=== PATIENT | female | born 1960 | race Hispanic/Latino ===

== ENCOUNTER 2017-05-27 14:50 | Emergency (ER) | payer BC, MEDICARE ==
[~2017-05-27 14:50] MED LIST: ALPR1TAB7 PO; CLON0.5T4 PO; FLUO40CA49 PO; LEVO500T2 PO; METO-408 PO; METR500T4 PO; PHEN100C9 PO; PRAV20TA4 PO; TRAZ-147 PO; ZONI100C6 PO
[2017-05-27 16:11] LABS: BILIRUBIN,URINE Small (NEGATIVE); COLOR,URINE Dark Yellow (YELLOW); GLUCOSE, URINE (UA) Negative (NEGATIVE); KETONES,URINE Negative (NEGATIVE); LEUKOCYTE ESTERASE ,URINE Trace (NEGATIVE); NITRATE,URINE Positive (NEGATIVE); OCCULT BLOOD,URINE Negative (NEGATIVE); PROTEIN,URINE Negative (NEGATIVE)
[2017-05-27 16:23] LABS: APPEARANCE,URINE SLIGHTLY CLOUDY (CLEAR)
[2017-05-27] MEDS ORDERED: ONDANSETRON ODT 4 MG TAB ONE (17:23)
[2017-05-27] MEDS ORDERED: KETOROLAC TROMETHAMINE 60 MG/2 ML VIAL ONE (17:23)
[2017-05-27 17:34] LABS: BACTERIA,URINE Few /HPF (None Seen); RBC,URINE 0-1 /HPF (0-1)
[2017-05-27 17:35] LABS: CALCIUM OXALATE CRYSTALS,UR Few /LPF (None Seen); MUCUS,URINE Moderate LPF (None Seen); SQUAMOUS EPITHELIAL CELL,UR Few /LPF (0-2)
== END 2017-05-27 18:12 | disposition home or self-care (01) ==
LOC: EDH 14:50
DX: N30.00 Acute cystitis without hematuria (principal); L02.31 Cutaneous abscess of buttock; Z90.710 Acquired absence of both cervix and uterus; Z98.890 Other specified postprocedural states; Z88.0 Allergy status to penicillin
CPT/HCPCS: 81001; 87804 ×2; 96372; 99284; J1885

== ENCOUNTER 2017-05-30 00:30 | Inpatient (IN) | payer BC, MEDICARE ==
[~2017-05-30] VITALS: Ht 170.2 cm; Wt 82.1 kg
[2017-05-30] VITALS (20 sets, daily range): BP systolic 99–143; BP diastolic 53–85
[2017-05-30 01:55] LABS: BASOPHILS % (AUTO) 0.5 % (0.0-5.0); EOSINOPHILS % (AUTO) 2.7 % (0.0-8.0); HEMATOCRIT 36.5 % (36-48); LYMPHOCYTES % (AUTO) 18.3 % (21.0-51.0); MEAN CORPUSCULAR HEMOGLOBIN 29.7 pg (27.0-33.0); MEAN CORPUSCULAR HGB CONC 34.1 g/dL (32.0-36.0); MEAN CORPUSCULAR VOLUME 87.2 fL (79-99); MONOCYTES % (AUTO) 7.5 % (3.0-13.0); PLATELET COUNT (AUTO) 265 K/uL (130-400); RED BLOOD CELL COUNT(AUTO) 4.19 MIL/uL (4.00-5.50); RED CELL DISTRIBUTION WIDTH 13.5 % (11.0-15.5); WHITE BLOOD COUNT (AUTO) 14.1 K/uL (4.8-10.8)
[2017-05-30] MEDS ORDERED: LORAZEPAM 2 MG/ML 1 ML VIAL ONE (02:02)
[2017-05-30 02:05] LABS: CREATININE 0.9 mg/dL (0.5-1.5)
[2017-05-30 02:07] LABS: PHENYTOIN (DILANTIN) 4.9 mcg/mL (10.0-20.0)
[2017-05-30] MEDS ORDERED: VANCOMYCIN 1GM+NS 250ML 250 ML IV ONE (03:16)
[2017-05-30] MEDS ORDERED: FOSPHENYTOIN SODIUM 500 MG/10ML VIAL IJ ONE (03:17)
[2017-05-30] MEDS ORDERED: KETOROLAC TROMETHAMINE 30MG/ML ONE ×2 (03:20→20:31)
[2017-05-30] MEDS ORDERED: LORAZEPAM 2 MG/ML 1 ML VIAL IVP PRN (05:45)
[2017-05-30 06:17] LABS: INR 0.99 (0.85-1.15); PROTHROMBIN TIME 10.4 SEC (9.6-11.6)
[2017-05-30] MEDS ORDERED: MEROPENEM 500 MG VIAL IVP SCH (06:26)
[2017-05-30] MEDS ORDERED: SODIUM CHLORIDE 0.9% IV SCH (06:30)
[2017-05-30] MEDS ORDERED: PHENYTOIN SODIUM IV SCH (06:30)
[2017-05-30] MEDS ORDERED: MEROPENEM 500MG+NS 50ML 50 ML IV SCH (06:41)
[2017-05-30] MEDS: SODIUM CHLORIDE 0.9% IV SCH ×2 (09:14→16:36)
[2017-05-30] MEDS: PHENYTOIN SODIUM IV SCH ×2 (09:14→16:36)
[2017-05-30] MEDS: FAMOTIDINE/PF 20 MG/2 ML VIAL IV SCH (09:14)
[2017-05-30] MEDS: MORPHINE SULFATE 2 MG/ML 1ML SYG IVP PRN ×4 (10:22→20:43)
[2017-05-30] MEDS ORDERED: COMPOUND IV REFRIGERATED 1 EACH IVSOLN MISC PRN (11:30)
[2017-05-30] MEDS ORDERED: COMPOUND IV MISC 1 EACH IVSOLN MISC PRN (11:45)
[2017-05-30] MEDS: MEROPENEM 500 MG VIAL IVP SCH (14:38)
[2017-05-30] MEDS ORDERED: CIPR-245 PO (16:50)
[2017-05-30] MEDS ORDERED: SULF1TAB3 PO (16:50)
[2017-05-30] MEDS ORDERED: THYR60TA2 PO (16:50)
[2017-05-30] MEDS ORDERED: DOCU100C33 PO (16:50)
[2017-05-30] MEDS: VANCOMYCIN 1.25 GM in SODIUM CHLORIDE 0.9% 250 ML IV SCH (17:12)
[2017-05-30] MEDS ORDERED: SODIUM CHLORIDE 0.9% 1000ML 1,000 ML IV ONE (19:34)
[2017-05-30] MEDS ORDERED: MIDAZOLAM HCL 1 MG/ML 2ML VIAL ONE (19:44)
[2017-05-30] MEDS ORDERED: ONDANSETRON HCL 4 MG/2 ML VIAL ONE (19:44)
[2017-05-30] MEDS ORDERED: ROCURONIUM BROMIDE 10MG/1ML 5ML VL ONE (19:44)
[2017-05-30] MEDS ORDERED: LIDOCAINE PF 2% 5ML ABBOJECT ONE (19:44)
[2017-05-30] MEDS ORDERED: PROPOFOL 10 MG/ML 20ML VIAL IV ONE (19:45)
[2017-05-30] MEDS ORDERED: FENTANYL CITRATE PF 50 MCG/1 ML 2ML VIAL ONE (19:45)
[2017-05-31] VITALS (9 sets, daily range): BP systolic 113–148; BP diastolic 59–84
[2017-05-31] MEDS: MEROPENEM 500 MG VIAL IVP SCH ×4 (00:02→21:56)
[2017-05-31] MEDS: FAMOTIDINE/PF 20 MG/2 ML VIAL IV SCH ×3 (00:02→21:56)
[2017-05-31] MEDS: SODIUM CHLORIDE 0.9% IV SCH ×2 (01:22→09:49)
[2017-05-31] MEDS: PHENYTOIN SODIUM IV SCH ×2 (01:22→09:49)
[2017-05-31] MEDS: MORPHINE SULFATE 2 MG/ML 1ML SYG IVP PRN ×5 (01:23→21:58)
[2017-05-31 03:42] LABS: HEMATOCRIT 34.1 % (36-48); MEAN CORPUSCULAR HEMOGLOBIN 30.2 pg (27.0-33.0); MEAN CORPUSCULAR HGB CONC 34.7 g/dL (32.0-36.0); MEAN CORPUSCULAR VOLUME 86.9 fL (79-99); PLATELET COUNT (AUTO) 239 K/uL (130-400); RED BLOOD CELL COUNT(AUTO) 3.93 MIL/uL (4.00-5.50); RED CELL DISTRIBUTION WIDTH 13.3 % (11.0-15.5); WHITE BLOOD COUNT (AUTO) 10.4 K/uL (4.8-10.8)
[2017-05-31] MEDS: VANCOMYCIN 1.25 GM in SODIUM CHLORIDE 0.9% 250 ML IV SCH ×2 (05:20→17:06)
[2017-05-31] MEDS ORDERED: DOCUSATE SODIUM 100 MG CAP PO PRN (10:15)
[2017-05-31] MEDS ORDERED: ATORVASTATIN CALCIUM 10 MG TABLET PO SCH (21:00)
[2017-05-31] MEDS ORDERED: CLONAZEPAM 0.5 MG TABLET PO SCH (21:00)
[2017-05-31] MEDS ORDERED: TRAZODONE HCL 100 MG TABLET PO SCH (21:00)
[2017-05-31] MEDS ORDERED: ZONISAMIDE 200 MG PO SCH (21:00)
[2017-05-31] MEDS: PHENYTOIN SODIUM 100 MG ERCAP PO SCH (21:56)
[2017-06-01 03:50] VITALS: BP 106/43
[2017-06-01 04:01] LABS: HEMATOCRIT 32.7 % (36-48); MEAN CORPUSCULAR HEMOGLOBIN 30.2 pg (27.0-33.0); MEAN CORPUSCULAR HGB CONC 34.9 g/dL (32.0-36.0); MEAN CORPUSCULAR VOLUME 86.6 fL (79-99); PLATELET COUNT (AUTO) 247 K/uL (130-400); RED BLOOD CELL COUNT(AUTO) 3.77 MIL/uL (4.00-5.50); RED CELL DISTRIBUTION WIDTH 13.3 % (11.0-15.5); WHITE BLOOD COUNT (AUTO) 9.9 K/uL (4.8-10.8)
[2017-06-01] MEDS: MORPHINE SULFATE 2 MG/ML 1ML SYG IVP PRN ×3 (04:48→14:23)
[2017-06-01] MEDS: VANCOMYCIN 1.25 GM in SODIUM CHLORIDE 0.9% 250 ML IV SCH (04:48)
[2017-06-01] MEDS: MEROPENEM 500 MG VIAL IVP SCH ×2 (05:57→14:22)
[2017-06-01] MEDS ORDERED: ARMOUR THYROID PO SCH (07:30)
[2017-06-01 08:00] VITALS: BP 104/60
[2017-06-01] MEDS ORDERED: FLUOXETINE HCL 20 MG CAPSULE PO SCH (09:00)
[2017-06-01] MEDS: FAMOTIDINE/PF 20 MG/2 ML VIAL IV SCH (09:46)
[2017-06-01] MEDS: METOPROLOL TARTRATE 25 MG TAB PO SCH ×2 (09:46→12:26)
[2017-06-01] MEDS: PHENYTOIN SODIUM 100 MG ERCAP PO SCH (09:46)
[2017-06-01] MEDS ORDERED: SULF1TAB42 PO (10:21)
[2017-06-01] MEDS ORDERED: DOXY100T2 PO (10:21)
[2017-06-01 11:00] VITALS: BP 131/75
[2017-06-01 16:00] VITALS: BP 112/72
== END 2017-06-01 20:20 | disposition home or self-care (01) | DRG 603 ==
LOC: EDH 00:30 → EDHIP 03:20 → OBSVTOIN 03:20 → 2DH 04:41 → 3CH 18:46
PROVIDERS: ADMIT Internal Medicine; ATTEND Internal Medicine
PROC: 0Y900ZZ Drainage of Right Buttock, Open Approach (ICD-10-PCS; principal; 2017-05-30 19:52)
DX: L03.317 Cellulitis of buttock (principal); E78.5 Hyperlipidemia, unspecified; L02.31 Cutaneous abscess of buttock; G40.909 Epilepsy, unspecified, not intractable, without status epilepticus; I10 Essential (primary) hypertension; K30 Functional dyspepsia; Z90.49 Acquired absence of other specified parts of digestive tract; Z90.710 Acquired absence of both cervix and uterus; Z88.0 Allergy status to penicillin
CPT/HCPCS: 36415; 80048; 80185; 80202; 82948; 85025; 85027; 85610; 87070; 87076; 87205; A4218; J1165; J1885; J2001; J2060; J2185; J2250; J2405; J2704; J3010; J3370; J3490; J7030; Q2009

== ENCOUNTER 2020-08-15 15:50 | Emergency (ER) | payer BC, MEDICARE ==
[~2020-08-15 15:50] MED LIST changes: -ALPR1TAB7 PO; -CLON0.5T4 PO; +ERGO500014 PO; -LEVO500T2 PO; +LIFI1DRO OU; -METR500T4 PO; +PANT40TA54 PO; -PHEN100C9 PO; +TAPE75TA2 PO; +THYR60TA2 PO; -TRAZ-147 PO; -ZONI100C6 PO
[2020-08-15 16:15] LABS: APPEARANCE,URINE Clear (CLEAR); BILIRUBIN,URINE Negative (NEGATIVE); COLOR,URINE Yellow (YELLOW); GLUCOSE, URINE (UA) Negative (NEGATIVE); KETONES,URINE Trace mg/dL (NEGATIVE); LEUKOCYTE ESTERASE ,URINE Trace (NEGATIVE); NITRATE,URINE Negative (NEGATIVE); OCCULT BLOOD,URINE Negative (NEGATIVE); PROTEIN,URINE Negative (NEGATIVE)
[2020-08-15 16:27] LABS: BACTERIA,URINE Few /HPF (None Seen); RBC,URINE 0-1 /HPF (0-1); SQUAMOUS EPITHELIAL CELL,UR Few /HPF (0-2)
[2020-08-15] MEDS ORDERED: KETOROLAC TROMETHAMINE 30MG/ML ONE (16:27)
[2020-08-15] MEDS ORDERED: ONDANSETRON HCL 4 MG/2 ML VIAL ONE (16:27)
[2020-08-15] MEDS ORDERED: SODIUM CHLORIDE 0.9% 1000ML 1,000 ML IV ONE (16:28)
[2020-08-15 16:33] LABS: BASOPHILS % (AUTO) 0.4 % (0.0-5.0); HEMATOCRIT 35.5 % (36-48); LYMPHOCYTES % (AUTO) 47.6 % (21.0-51.0); MEAN CORPUSCULAR HEMOGLOBIN 29.4 pg (27.0-33.0); MEAN CORPUSCULAR VOLUME 89.2 fL (79-99); MONOCYTES % (AUTO) 7.6 % (3.0-13.0); NEUTROPHILS % (AUTO) 39.3 % (40.0-77.0); PLATELET COUNT (AUTO) 143 K/uL (130-400); RED BLOOD CELL COUNT(AUTO) 3.98 MIL/uL (4.00-5.50); RED CELL DISTRIBUTION WIDTH 14.2 % (11.0-15.5); WHITE BLOOD COUNT (AUTO) 6.8 K/uL (4.8-10.8)
[2020-08-15 17:01] LABS: POTASSIUM 3.6 mmol/L (3.5-5.1)
[2020-08-15 17:05] LABS: ALBUMIN 3.1 g/dL (3.5-5.0); BILIRUBIN,TOTAL 0.2 mg/dL (0.2-1.0); TOTAL PROTEIN, SERUM 7.3 g/dL (6.0-8.3)
[2020-08-15] MEDS ORDERED: LACTULOSE 20 GM/30 ML UDCUP ONE (17:50)
[2020-08-15] MEDS ORDERED: MAGNESIUM CITRATE 296 ML SOLUTION ONE (17:50)
== END 2020-08-15 17:59 | disposition home or self-care (01) ==
LOC: EDH 15:50
DX: K59.00 Constipation, unspecified (principal); K57.90 Diverticulosis of intestine, part unspecified, without perforation or abscess without bleeding; J84.114 Acute interstitial pneumonitis; I10 Essential (primary) hypertension; Z88.0 Allergy status to penicillin; Z90.710 Acquired absence of both cervix and uterus
CPT/HCPCS: 36415; 71045; 74176; 80053; 81001; 83605; 83690; 84484; 85025; 93005; 96361; 96374; 96375; 99285; J1885; J2405; J7030

== ENCOUNTER 2020-08-18 20:03 | Emergency (ER) | payer BC, MEDICARE ==
[2020-08-18] MEDS ORDERED: CEPHALEXIN 500 MG CAPSULE ONE (20:42)
[2020-08-18] MEDS ORDERED: TETANUS/DIPHTHERIA TOXOID [ADULT] 0.5 ML VIAL IM ONE (20:43)
[2020-08-18] MEDS ORDERED: ACETAMINOPHEN EXTRA STRENGTH 500 MG TABLET ONE (20:44)
== END 2020-08-18 21:36 | disposition home or self-care (01) ==
LOC: EDH 20:03
DX: S80.02XA Contusion of left knee, initial encounter (principal); S60.222A Contusion of left hand, initial encounter; I10 Essential (primary) hypertension; Z88.0 Allergy status to penicillin; Z90.710 Acquired absence of both cervix and uterus; Z98.890 Other specified postprocedural states; X58.XXXA Exposure to other specified factors, initial encounter; Y93.01 Activity, walking, marching and hiking; Y92.89 Other specified places as the place of occurrence of the external cause; Y99.8 Other external cause status
CPT/HCPCS: 73130; 73562; 90471; 90714; 96372